=== PATIENT | male | born 1995 | race Caucasian/White ===

== ENCOUNTER → 2018-11-29 17:34 | Outpatient (CLI) | payer OTHER, SELFPAY | PROVIDERS: Family Provider Family Medicine; PCP Family Medicine; Referring Provider Nurse Practitioner Family; Visit Provider Nurse Practitioner Family | DX: R10.9 Unspecified abdominal pain (principal) | CPT/HCPCS: 87086 ==

== ENCOUNTER → 2018-12-04 17:46 | Outpatient (CLI) | payer OTHER, SELFPAY ==
[2018-12-04 17:58] LABS: Bacteria 0 SEEN /hpf (None Seen); Mucous, Urine 0 SEEN /hpf (<or=2+); Squamous Epithelial Cells - UA 0 SEEN /hpf (0-5); White Blood Cells 0 SEEN /hpf (0-5)
[2018-12-04 18:08] LABS: Color, Urine Yellow (Yellow); Glucose, Dipstick Normal (Normal); Ketone-Dipstick Negative (Negative); Leukocyte Esterase-Dipstick Negative /ul (Negative); Nitrite-Dipstick Negative (Negative); Occult Blood-Urine 25 /ul (Negative); Protein-Dipstick Negative (Negative); Specific Gravity, Urine 1.015 (1.002-1.030); Urine Bilirubin Dipstick Negative (Negative); Urine Clarity Clear (Clear); Urine Urobilinogen Normal (Normal)
[2018-12-04 18:14] LABS: Red Blood Cells-Urine 0-5 SEEN /hpf (0-5)
== END ==
PROVIDERS: Family Provider Family Medicine; PCP Family Medicine; Referring Provider Nurse Practitioner Adult Health; Visit Provider Nurse Practitioner Adult Health
DX: R31.9 Hematuria, unspecified (principal)
CPT/HCPCS: 81001

== ENCOUNTER → 2018-12-10 17:50 | Outpatient (CLI) | payer OTHER, SELFPAY | PROVIDERS: Family Provider Family Medicine; PCP Family Medicine; Referring Provider Family Medicine; Visit Provider Family Medicine | DX: R05 Cough (principal) ==

== ENCOUNTER 2018-12-12 06:34 | Emergency (ER) | payer OTHER, SELFPAY ==
[2018-12-12 06:34] VITALS: BP 152/91; PULSE 49; RESP 16; TEMP 36.9; O2SAT 98; BMI 29.7
[2018-12-12] MEDS: 0.9% Normal Saline 1,000 ML 250 ML IV (06:53)
[2018-12-12] MEDS: Ondansetron 4 MG/2 ML Vial IV (06:53)
[2018-12-12] MEDS: Ketorolac 30 MG/ML Syringe IV (06:53)
--- NOTE | 2018-12-12 06:54 | ED.DCSUM_ITS ---
History of Present Illness Chief Complaint: Flank Pain Detail of Chief Complaint: Intermittent for 2 weeks Informant: Patient Onset: Weeks - Onset 2 weeks ago. Constant for the past several hours Timing: Continuous - Since onset this morning Quality: Severe flank pain radiating to the inguinal area Location: Right Current Severity: Severe Maximum Severity: Severe Worsened by: Nothing Relieved by: Nothing Associated Symptoms: Nausea and vomiting, frequency, urgency and hematuria Narrative: Patient is a 23-year-old male who reports intermittent flank pain for 2 weeks now constant. Pain is colicky and severe. Associate with nausea and vomiting. He also reported frequency, urgency and hematuria. There is a family history of ureterolithiasis. He has no history of urolithiasis. He has no sniffing a past medical history. He denies fever, chills night sweats. He denies weight gain or weight loss. Past Medical History - Allergies and Home Meds Allergies/Adverse Reactions: Allergies No Known Allergies Allergy (Verified 12/12/18 06:35) Primary Care Physician: Care Physician,No Primary [Primary Care Provider] - Prior records reviewed: Yes Past Medical History: None Surgical History: no surgical history Lives: Alone Smoking Status: Never smoker Drugs: None Review of Systems General: Denies: Chills, Fever, Sweats Eyes: Denies: Visual changes - bilaterally, Diplopia ENT: Denies: Rhinorrhea, Sore throat Cardiovascular: Denies: Chest pain, Palpitations Respiratory: Denies: Dyspnea, Cough, Dyspnea on exertion Gastrointestinal: Reports: Abdominal pain, Nausea, Vomiting Genitourinary: Denies: Dysuria, Hematuria, Frequency Musculoskeletal: Reports: Back pain Skin: Denies: Rash, Wounds Neurological: Denies: Headache, Weakness, Numbness Allergy: Denies: Uticaria, Swelling of the mouth Physical Exam Vital Signs/Narrative: Vital Signs Temp Pulse Resp BP Pulse Ox 12/12/18 06:34 98.4 F 49 L 16 152/91 H 98 Inital Vital Signs reviewed: Yes General: Well nourished, Well developed, Acute Distress Head: Normocephalic, Atraumatic Eyes: Perrl, EOMI ENT: Moist mucous membranes, No rhinorrhea Neck: Supple, Nontender Cardiovascular: Regular rhythm, No murmurs, Normal S1, Normal S2, Bradycardia Respiratory: No distress, CTA bilaterally, Chest nontender Abdomen: Soft, Nontender, Nondistended, Normal bowel sounds, No masses Back: Nontender, Normal Inspection Extremities: Nontender, No edema Skin: No rash, Pallor Neurological: Alert, Oriented x3, Cranial nerves II-XII grossly intact, Normal Strength, Normal Sensation Psychological: Normal affect, Normal Mood Diagnostic/Tx/Re-eval CT of the abdomen pelvis without contrast revealed a right and left ureteral calculi and there is a distal right calculus noted near the UVJ. Formal reading pending. 12/12/18 07:05 Abdomen/Pelvis without Cont [CT] Stat Laboratory Results 12/12/18 12/12/18 06:45 07:10 WBC 10.8 RBC 4.92 Hgb 14.6 Hct 44.8 MCV 91.1 MCH 29.7 MCHC 32.6 RDW 12.6 RDW Differential 41.3 Plt Count 335 MPV 8.7 Immature Gran % (Auto) 0.200 Neut % (Auto) 68.0 Lymph % (Auto) 21.5 [place] % (Auto) 6.9 Eos % (Auto) 2.7 Baso % (Auto) 0.7 Absolute Neuts (auto) 7.3 Absolute Lymphs (auto) 2.32 Total Counted Not Reportable Urine Color Yellow Urine Clarity Clear Urine pH 5.0 Ur Specific [place] 1.025 Urine Protein Negative Urine Glucose (UA) Normal Urine Ketones Negative Urine Occult Blood 250 H Urine Nitrite Negative Urine Bilirubin Negative Urine Urobilinogen Normal Ur Leukocyte Esterase Negative - Medical Decision Making Patient with intermittent flank pain and hematuria presents with acute constant colicky pain. He reports significant discomfort presently. He does report nausea and vomiting. Suspect ureterolithiasis. UA was obtained to rule out urinary tract infection. CT of the abdomen pelvis without contrast obtained to confirm obstructing ureteral stone. Differential would include urinary tract infection/pyelonephritis, renal artery aneurysm, GI etiology. IV was established. He was medicated with 4 mg of Zofran and 30 mg of Toradol IV push. Will reassess in 30 minutes. Patient was reassessed at 0740. Reports minimal discomfort. He was informed of my interpretation and lab results. Radiologist agreement plan is discharged home with appropriate pain medicine and referral to urology. ED Disposition - Plan for ED Patient: Disposition: Home or Assisted Living Diagnosis: Ureterolithiasis, Renal calculus, bilateral Instructions: ED Stone Renal W Colic Prescriptions: Hydrocodone Bitart/Apap 5-325 [[place] 5MG-325MG] 1 tablet PO Q6H PRN PRN 3 Days #10 tablet PRN Reason: Pain Naproxen [Naprosyn] 500 mg PO BID #14 tablet Referrals: Care Physician,No Primary [Primary Care Provider] - Crow Reid MD [STAFF PHYSICIAN] - 5-7 Days
[2018-12-12 06:56] LABS: Absolute Lymphocyte Count 2.32 X10^3/ul (0.83-4.51); Absolute Neutrophil Count 7.3 X10^3/uL (2.0-7.7); Basophil# 0.08 X10^3/uL; Basophil% 0.7 % (0-1); Eosinophil# 0.29 X10^3/uL; Eosinophils% 2.7 % (0-5); Hematocrit 44.8 % (40-54); Hemoglobin 14.6 g/dl (13.0-16.5); Lymphocyte # 2.32 X10^3/ul (4.0); Lymphocyte % 21.5 % (19-41); Mean Corp Hgb Conc 32.6 g/gl (32-36); Mean Corpuscular Hgb 29.7 pg (27.0-32.0); Mean Corpuscular Volume 91.1 fL (80-94); Mean Platelet Vol. 8.7 fl (6.2-12.0); Monocyte# 0.74 X10^3/uL; Monocyte% 6.9 % (0-10); Neutrophil # 7.34 X10^3/uL (2.7-7.7); POSITIVE COUNT NO; POSITIVE DIFFERENTIAL NO; POSITIVE MORPHOLOGY NO; Platelet Count 335 K/mm3 (150-450); RBC Distribution Width CV 12.6 % (11.6-14.6); RBC Distribution Width SD 41.3 fl (35.1-43.9); Red Blood Count 4.92 M/mm3 (4.6-6.2); White Blood Count 10.8 K/mm3 (4.4-11.0)
--- NOTE | 2018-12-12 07:05 | CT_ITS ---
STUDY: CT ABDOMEN AND PELVIS WITHOUT CONTRAST REASON FOR EXAM: Male, 23 years old. Right flank pain RADIATION DOSAGE (If Supplied By Facility): CTDIvol = ( 6.11 ) mGy, DLP = ( 322.25 ) mGycm TECHNIQUE: Transaxial images were obtained from the dome of the diaphragm to the symphysis pubis without oral contrast, and without intravenous contrast. Sagittal and coronal images were reconstructed. Individualized dose optimization techniques were used for this CT. COMPARISON: None. FINDINGS: The lung bases are clear. The liver is normal. No dilated intrahepatic biliary radicles. The gallbladder is normal with no calcifications within it. There is no pericholecystic fluid collection or streakiness The spleen is normal. The pancreas is normal. Both adrenals are normal. A mild right-sided hydroureteronephrosis secondary to obstruction 3.2 mm calculus in the right ureterovesical junction. A nonobstructing 2.1 mm calculus in the right inferior pole calyx. The left kidney is normal The stomach is normal. There is no bowel distention, acute appendicitis or diverticulitis. No constricting lesions are seen in large bowel. The abdominal wall is intact with no hernias. There is no ascites or any free intraperitoneal air. No indication of epiploic appendagitis The vascular structures in the retroperitoneum are normal. There is no retrocrural, retroperitoneal or mesenteric adenopathy. The bones and joints are normal. The urinary bladder is normal.--The prostate is normal there is no inguinal or pelvic adenopathy. There is no inguinal hernia. . CT/Abdomen/Pelvis without Cont IMPRESSION: A mild right-sided hydroureteronephrosis secondary to an obstructing 3.2 mm calculus in the right ureterovesical junction. A nonobstructing 2.1 mm calculus is also noted in the right inferior pole calyx. No acute appendicitis or diverticulitis Electronically Signed: Yosef Canela MD at 7:46 EDT Tel , Service support ,
[2018-12-12 07:21] LABS: Mucous, Urine 0 SEEN /hpf (<or=2+)
[2018-12-12 07:33] LABS: Color, Urine Yellow (Yellow); Glucose, Dipstick Normal (Normal); Ketone-Dipstick Negative (Negative); Leukocyte Esterase-Dipstick Negative /ul (Negative); Nitrite-Dipstick Negative (Negative); Occult Blood-Urine 250 /ul (Negative); Protein-Dipstick Negative (Negative); Specific Gravity, Urine 1.025 (1.002-1.030); Urine Bilirubin Dipstick Negative (Negative); Urine Clarity Clear (Clear); Urine Urobilinogen Normal (Normal)
[2018-12-12 07:48] LABS: White Blood Cells 0-5 SEEN /hpf (0-5)
[2018-12-12 07:49] LABS: Bacteria 1+ /hpf (None Seen); Red Blood Cells-Urine 25-50 SEEN /hpf (0-5); Squamous Epithelial Cells - UA 0-5 SEEN /hpf (0-5)
[2018-12-12 08:02] VITALS: BP 103/64; PULSE 50; RESP 18; O2SAT 98
== END 2018-12-12 08:06 | disposition home or self-care (01) ==
PROVIDERS: Emergency Provider Emergency Medicine
DX: N13.2 Hydronephrosis with renal and ureteral calculous obstruction (principal); Z84.2 Family history of other diseases of the genitourinary system
CPT/HCPCS: 74176; 81001; 85025; 96361; 96374; 96375; 99283; J7030; A4216; J2405

== ENCOUNTER → 2018-12-17 14:22 | Outpatient (CLI) | payer OTHER, SELFPAY ==
[2018-12-12 06:34] VITALS: BMI 29.7
--- NOTE | 2018-12-17 14:27 | RAD_ITS ---
STUDY: X-RAY - ABDOMEN/PELVIS REASON FOR EXAM: Male, 23 years old. Current right kidney stone. TECHNIQUE: Single AP view of the abdomen / pelvis. COMPARISON: Comparison is made with prior study dated August 05, 2016. FINDINGS: There is a moderate amount of colonic fecal material. I suspect a 2 mm calculus in the right hemipelvis most likely at the level of the ureterovesical junction. Normal soft tissue structures. Normal visualized osseous structures. RAD/Abdomen Single View IMPRESSION: Findings suggestive of a 2 mm calculus at the right ureterovesical junction. Electronically Signed: Christian Chapa, at 14:54 EDT , Service support ,
== END ==
PROVIDERS: Referring Provider Urology; Visit Provider Urology
DX: N20.0 Calculus of kidney (principal)
CPT/HCPCS: 74018

== ENCOUNTER → 2019-01-18 10:15 | Outpatient (CLI) | payer OTHER, SELFPAY ==
--- NOTE | 2018-12-21 13:23 | RAD_ITS ---
STUDY: X-RAY - ABDOMEN/PELVIS REASON FOR EXAM: Male, 23 years old. History of kidney stones. Pre-[facility] examination. TECHNIQUE: Single AP view of the abdomen / pelvis. COMPARISON: Comparison is made with prior examination dated December 17, 2018. FINDINGS: There is a moderate amount of colonic fecal material. The previously seen tiny calculus in the right hemipelvis is not seen at this time. Normal soft tissue structures. Normal visualized osseous structures. RAD/Abdomen Single View IMPRESSION: Normal x-ray examination of the abdomen and pelvis. Electronically Signed: Christian Chapa, at 14:00 EDT , Service support ,
== END ==
PROVIDERS: Referring Provider Urology; Visit Provider Urology
DX: Z01.818 Encounter for other preprocedural examination (principal); N20.0 Calculus of kidney
CPT/HCPCS: 74018; J7120

== ENCOUNTER → 2020-04-02 10:53 | Outpatient (CLI) | payer OTHER, SELFPAY ==
[2020-04-02 10:54] LABS: Lyme Ab Screen Interpretation REF LAB
[2020-04-03 20:27] LABS: Lyme Scn Total Ab w/Rflx <0.91 ISR (0.00-0.90)
== END ==
PROVIDERS: Visit Provider Family Medicine
DX: T14.8XXA Other injury of unspecified body region, initial encounter (principal); W57.XXXA Bitten or stung by nonvenomous insect and other nonvenomous arthropods, initial encounter
CPT/HCPCS: 36415; 86618

== ENCOUNTER → 2021-01-01 | Outpatient (CLI) | payer OTHER, SELFPAY | END | disposition home or self-care (01) | LOC: MFPLAB 13:34 → LABSPEC 13:35 | PROVIDERS: PCP Family Medicine; Referring Provider Family Medicine; Visit Provider Family Medicine | DX: J20.9 Acute bronchitis, unspecified (principal) | CPT/HCPCS: 87635; U0002 ==